=== PATIENT | male | born 1965 | race African-American/Black ===

== ENCOUNTER 2022-05-10 05:08 | Emergency (ER) | payer OTHER ==
[~2022-05-10] VITALS: Ht 180.3 cm; Wt 93.6 kg
[2022-05-10 06:01] VITALS: BP 137/88
[2022-05-10] MEDS ORDERED: FLUORESCEIN SOD OPTH TEST STRIP OP ONE (06:45)
[2022-05-10] MEDS ORDERED: CIP03OS RIGHTEYE ×3 (06:47→06:56)
== END 2022-05-10 06:54 | disposition home or self-care (01) ==
LOC: ER 05:08
DX: S05.01XA Injury of conjunctiva and corneal abrasion without foreign body, right eye, initial encounter (principal); W22.8XXA Striking against or struck by other objects, initial encounter; Y93.89 Activity, other specified; Y92.89 Other specified places as the place of occurrence of the external cause; Y99.0 Civilian activity done for income or pay